=== PATIENT | female | born 1980 | race Caucasian/White ===

== ENCOUNTER 2022-04-05 18:23 | Observation (INO) | payer BC ==
[~2022-04-05] VITALS: Ht 157.4 cm; Wt 57.1 kg
[~2022-04-05 18:23] MED LIST: ACHYD1T PO; DCS100C PO; Docusate Sodium PO; ENXP40I.4 SC; HYDR-3720 PO; IBP800T PO; Ibuprofen PO; ONDA-43 PO; PREN1TAB19 PO; progesterone
[2022-04-05] MEDS ORDERED: NS IV 1000 ML 1,000 ML IV STA (19:02)
[2022-04-05 19:20] LABS: BASOPHILS % (AUTO) 0 % (0-10); EOSINOPHILS # (AUTO) 0.2 10^3/uL (0.0-0.3); EOSINOPHILS % (AUTO) 1 % (0-10); HEMATOCRIT 35 % (35-52); HEMOGLOBIN 11.4 g/dL (11.5-16.0); LYMPHOCYTES # (AUTO) 4.6 X 10^3 (1.0-4.0); LYMPHOCYTES % (AUTO) 32 % (12-44); MEAN CORPUSCULAR HEMOGLOBIN 29 pg (25-34); MEAN CORPUSCULAR HGB CONC 33 g/dL (32-36); MEAN CORPUSCULAR VOLUME 89 fL (80-99); MEAN PLATELET VOLUME 9.5 fL (9.0-12.2); MONOCYTES # (AUTO) 0.9 X 10^3 (0.0-1.0); MONOCYTES % (AUTO) 7 % (0-12); NEUTROPHILS # (AUTO) 8.6 X 10^3 (1.8-7.8); NEUTROPHILS % (AUTO) 60 % (42-75); PLATELET COUNT 355 10^3/uL (130-400); WHITE BLOOD COUNT 14.4 10^3/uL (4.3-11.0)
[2022-04-05 19:23] LABS: ALBUMIN 4.1 GM/DL (3.2-4.5); BILIRUBIN,TOTAL 0.2 MG/DL (0.1-1.0); CALCIUM 8.9 MG/DL (8.5-10.1); CREATININE SERUM 0.77 MG/DL (0.60-1.30); MAGNESIUM 1.7 MG/DL (1.6-2.4); POTASSIUM 3.7 MMOL/L (3.6-5.0); TOTAL PROTEIN 6.8 GM/DL (6.4-8.2)
--- NOTE | 2022-04-05 19:25 | ED Integumentary General ---
General Chief Complaint: Allergic Reaction Stated Complaint: BILAT HAND AND SHOULDER PAIN - JAW PAIN Nursing Triage Note: pt ambulatory to room. 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 pt primary doctor prescribed her doxycycline, benadryl, prednisone, singulair, and gave her an epi-pen. pt states she woke up yesterday and had extreme pain from her hands, up her arms, into her shoulders and jaw. pt primary doctory told her to discontinue the doxy and prednisone at that time. pt states the pain is too extreme to handle today and can barely drive to lift her arms up or eat with the pain in her jaw Source: patient, family Exam Limitations: no limitations History of Present Illness Date Seen by Provider: Apr 05, 2022 Time Seen by Provider: 19:20 Initial Comments This is a healthy 42-year-old female who presents to the emergency room for evaluation of a rash and bilateral upper extremity and upper back pain. She states that on Wednesday she noticed some itching and a slight erythematous rash on her extremities which then progressed throughout the evening and by Wednesday dinkey operator slag she had significant swelling to her lips. She states that the rash coalesced into bright red painful rash on her legs and arms primarily. She went to urgent care and they gave her a shot of steroids and started her on doxycycline and prednisone. The rash seemed to worsen and so they gave her another shot of steroids and increase the dose of prednisone at that time. As of today the rash had mostly improved patient states that she started having severe joint and muscle pain in her upper extremities and upper back. Her pain is currently a 9 out of 10 that is worse with any kind of movement. Timing/Duration: week Possible Cause: no cause identified Allergies and Home Medications Allergies Coded Allergies: erythromycin base (Verified Allergy, Unknown, 03/03/07) Patient Home Medication List Home Medication List Reviewed: No Cetirizine HCl (Zyrtec) 10 Mg Tablet, 10 MG PO DAILY, (Reported) Entered as Reported by: DANIEL STAHL on 04/06/22 9367 Last Action: Reviewed Diphenhydramine HCl (Benadryl) 25 Mg Capsule, 25 MG PO Q4H PRN for RASH, (Reported) Entered as Reported by: DANIEL STAHL on 04/06/22 7947 Last Action: Reviewed Ketorolac Tromethamine (Ketorolac Tromethamine) 10 Mg Tablet, 10 MG PO Q6H Prescribed by: CELESTE RODRIGUEZ on 04/06/221816 Oxycodone HCl/Acetaminophen (Percocet 7.5-325 mg Tablet) 1 Each Tablet, 1 TAB PO Q6H PRN for PAIN-MODERATE Prescribed by: CELESTE RODRIGUEZ on 04/06/221817 Discontinued Medications Ascorbate Calcium (Vitamin C) 500 Mg Tablet, 500 MG PO DAILY, (Reported) Entered as Reported by: DANIEL STAHL on 04/06/221406 Last Action: Reviewed Cholecalciferol (Vitamin D3) (Vitamin D3) 125 Mcg (5000 Unit) Tablet, 125 MCG PO DAILY, (Reported) Entered as Reported by: DANIEL STAHL on 04/06/221406 Last Action: Reviewed Doxycycline Hyclate (Doxycycline Hyclate) 100 Mg Tablet, 100 MG PO BID, (Reported) Entered as Reported by: DANIEL STAHL on 04/06/221404 Last Action: Reviewed Lactobac Cmb #3/Fos/Pantethine (Probiotic & Acidophilus Cap) 300MM-250 Capsule, 1 EACH PO DAILY, (Reported) Entered as Reported by: DANIEL STAHL on 04/06/221407 Last Action: Reviewed Melatonin (Melatonin) 5 Mg Tablet, 5 MG PO HS PRN for SLEEP, (Reported) Entered as Reported by: DANIEL STAHL on 04/06/221405 Last Action: Reviewed Montelukast Sodium (Montelukast Sodium) 10 Mg Tablet, 10 MG PO DAILY, (Reported) Entered as Reported by: DANIEL STAHL on 04/06/221404 Last Action: Reviewed Multivitamin (Multi-Vitamin Daily) 1 Each Tablet, 1 EACH PO DAILY, (Reported) Entered as Reported by: DANIEL STAHL on 04/06/221407 Last Action: Reviewed [place]-3 Fatty Acids/Fish Oil ([place] 3 1,000 mg Softgel) 300 Mg-1,000 Mg Capsule, 1 EACH PO DAILY, (Reported) Entered as Reported by: DANIEL STAHL on 04/06/221406 Last Action: Reviewed Prednisone (Prednisone) 20 Mg Tab, 60 MG PO DAILY, (Reported) Entered as Reported by: DANIEL STAHL on 04/06/221404 Last Action: Reviewed Triamcinolone Acet (Triamcinolone Acetonide 0.1% Cream) 0.1 % Cr, 1 APPLIC TOP DAILY, (Reported) Entered as Reported by: DANIEL STAHL on 04/06/22 8045 Last Action: Reviewed Review of Systems Review of Systems Constitutional: no symptoms reported EENTM: no symptoms reported Respiratory: no symptoms reported Cardiovascular: edema (Hands and feet) Musculoskeletal: back pain, muscle pain Skin: rash Hematologic/Lymphatic: No Symptoms Reported Past Iodvzpw-Twcsnt-Eonjbn Hx Patient Social History Tobacco Use?: No Substance use?: No Alcohol Use?: No Immunizations Up To Date Tetanus Booster (TDap): Less than 5yrs Past Medical History Reproductive Disorders: No Female Reproductive Disorders: Denies Sexually Transmitted Disease: No HIV/AIDS: No Loss of Vision: Denies Hearing Impairment: Denies Adverse Reaction/Blood Tranf: No Family Medical History FH: multiple sclerosis Osteoarthrosis Pulmonary embolism Thyroid disease 19 MOTHER (THYROID CANCER) No Family History of: AIDS Abdominal aortic aneurysm [place]'s disease Alcoholism Alzheimer's disease Aphasia Arthritis Asthma Cancer of mouth Cardiovascular disease Cataracts Colon cancer Completed stroke Congenital disease Congenital heart disease Coronary thrombosis Cystic fibrosis Deafness or hearing loss Dementia Diabetes mellitus Drug abuse Dysphasia Fibrocystic disease of breast Gastroenteritis Glaucoma Headache disorder Hypercholesterolemia Hypertension Infertility Kidney disease Myocardial infarction Neoplasm Not obtainable due to adoption Osteoporosis Parkinson's disease Prostate cancer Psychosocial problem Respiratory disorder Seizure disorder Severe allergy Tuberculosis Visual disorder Physical Exam Vital Signs Vital Signs - First Documented 04/05/22 18:34 Temp 36.5 Pulse 95 Resp 16 B/P (MAP) 114/71 (85) Pulse Ox 98 Capillary Refill : General Appearance: WD/WN, no apparent distress HEENT: PERRL/EOMI, normal ENT inspection Neck: other (Tenderness to palpation to the cervical paraspinal muscles) Cardiovascular: regular rate, rhythm Respiratory: chest non-tender, normal breath sounds Gastrointestinal: non tender Back: normal inspection, other (Muscle tenderness to the upper trapezius muscles bilaterally) Extremities: other (Limited range of motion to the shoulders and elbow secondary to pain) 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 Skin: normal color, rash (Fine erythematous nonblanching rash noted to the lower extremities) Lymphatic: no adenopathy Progress/Results/Core Measures Results/Orders Lab Results Laboratory Tests Test 04/05/22 18:42 Range/Units White Blood Count 14.4 H 4.3-11.0 10^3/uL Red Blood Count 3.92 3.80-5.11 10^6/uL Hemoglobin 11.4 L 11.5-16.0 g/dL Hematocrit 35 35-52 % Mean Corpuscular Volume 89 80-99 fL Mean Corpuscular Hemoglobin 29 25-34 pg Mean Corpuscular Hemoglobin Concent 33 32-36 g/dL Red Cell Distribution Width 14.1 10.0-14.5 % Platelet Count 355 130-400 10^3/uL Mean Platelet Volume 9.5 9.0-12.2 fL Immature Granulocyte % (Auto) 0 % Neutrophils (%) (Auto) 60 42-75 % Lymphocytes (%) (Auto) 32 12-44 % Monocytes (%) (Auto) 7 0-12 % Eosinophils (%) (Auto) 1 0-10 % Basophils (%) (Auto) 0 0-10 % Neutrophils # (Auto) 8.6 H 1.8-7.8 X 10^3 Lymphocytes # (Auto) 4.6 H 1.0-4.0 X 10^3 Monocytes # (Auto) 0.9 0.0-1.0 X 10^3 Eosinophils # (Auto) 0.2 0.0-0.3 10^3/uL Basophils # (Auto) 0.0 0.0-0.1 10^3/uL Immature Granulocyte # (Auto) 0.1 0.0-0.1 10^3/uL Neutrophils % (Manual) 57 % Lymphocytes % (Manual) 37 % Monocytes % (Manual) 6 % Polychromasia SLIGHT Erythrocyte Sedimentation Rate 17 0-20 MM/HR Sodium Level 139 135-145 MMOL/L Potassium Level 3.7 3.6-5.0 MMOL/L Chloride Level 104 98-107 MMOL/L Carbon Dioxide Level 20 L 21-32 MMOL/L Anion Gap 15 H 5-14 MMOL/L Blood Urea Nitrogen 13 7-18 MG/DL Creatinine 0.77 0.60-1.30 MG/DL Estimat Glomerular Filtration Rate 99 BUN/Creatinine Ratio 17 Glucose Level 109 H 70-105 MG/DL Calcium Level 8.9 8.5-10.1 MG/DL Corrected Calcium 8.8 8.5-10.1 MG/DL Magnesium Level 1.7 1.6-2.4 MG/DL Total Bilirubin 0.2 0.1-1.0 MG/DL Aspartate Amino Transf (AST/SGOT) 22 5-34 U/L Alanine Aminotransferase (ALT/SGPT) 24 0-55 U/L Alkaline Phosphatase 54 40-136 U/L Troponin I < 0.028 <0.028 NG/ML C-Reactive Protein High Sensitivity 1.81 H 0.00-0.50 MG/DL Total Protein 6.8 6.4-8.2 GM/DL Albumin 4.1 3.2-4.5 GM/DL Serum Test, Qualitative NEGATIVE NEGATIVE My Orders Orders - JUNE MCKEON Ua Culture If Indicated (04/05/22 18:32) Hcg,Qualitative Serum (04/05/22 18:32) Cbc With Automated Diff (04/05/22 19:02) Comprehensive Metabolic Panel (04/05/22 19:02) Magnesium (04/05/22 19:02) Hs C Reactive Protein (04/05/22 19:02) Erythrocyte Sedimentation Rate (04/05/22 19:02) Ns Iv 1000 Ml (Sodium Chloride 0.9%) (04/05/22 19:02) Manual Differential (04/05/22 18:42) Ondansetron Injection (Zofran Injectio (04/05/22 20:00) Morphine Injection (Morphine Injection (04/05/22 20:00) Medications Given in ED Vital Signs/I&O 04/05/22 18:34 Temp 36.5 Pulse 95 Resp 16 B/P (MAP) 114/71 (85) Pulse Ox 98 Blood Pressure Mean: 85 Comment Sinus rhythm, 75 bpm, QRS duration 79 MS, QTc 395 MS Departure Communication (Admissions) Time/Spoke to Admitting Phy: 20:[address] Rodriguez at this time. Communication (PCP) Concern for vasculitis, autoimmune, allergic reaction to doxycycline. Patient with extreme pain in her upper extremities and neck without much improvement here in the ER.. Improvement the rash in her lower extremities. Patient will be admitted for further evaluation Impression Primary Impression: Arthralgia Additional Impression: Rash and nonspecific skin eruption Disposition: ADMITTED INPATIENT Condition: Stable Admissions Decision to Admit Reason: Admit from ER (General) Decision to Admit/Date: Apr 05, 2022 Time/Decision to Admit Time: 19:59 Departure-Patient Inst. Referrals: CELESTE RODRIGUEZ MD (PCP/Family) Primary Care Physician Scripts Oxycodone HCl/Acetaminophen (Percocet 7.5-325 mg Tablet) 1 Each Tablet 1 TAB PO Q6H PRN for PAIN-MODERATE MDD 4 TABS for 7 Days, #28 TAB Prov: CELESET RODRIGUEZ MD 04/06/22 Ketorolac Tromethamine (Ketorolac Tromethamine) 10 Mg Tablet 10 MG PO Q6H for 5 Days, #20 TAB Prov: CELESTE RODRIGUEZ MD 04/06/22 JUNE MCKEON Apr 05, 2022 19:25
[2022-04-05 19:47] LABS: ERYTHROCYTE SEDIMENTATION RATE 17 MM/HR (0-20); LYMPHOCYTES % (MANUAL) 37 %; MONOCYTES % (MANUAL) 6 %; NEUTROPHILS % (MANUAL) 57 %; POLYCHROMASIA SLIGHT
[2022-04-05] MEDS ORDERED: ONDANSETRON 4 MG/2 ML (SDV) Z0FRAN IVP ONE (20:00)
[2022-04-05] MEDS ORDERED: morphine INJ 10 MG/ML 1ML (SYR OR VIAL) IVP ONE (20:00)
[2022-04-05] MEDS ORDERED: diphenhydrAMINE 50 MG/ML INJ (BENADRYL) IVP ONE (20:15)
[2022-04-05 21:15] VITALS: BP 123/67
[2022-04-05] MEDS ORDERED: KETOROLAC 30 MG/ML VIAL IVP ONE (21:15)
[2022-04-05] MEDS ORDERED: NS IV 1000 ML 1,000 ML ONE (21:18)
[2022-04-05] MEDS ORDERED: CATHETER FLUSH 10 ML SYR IVP PRN (21:30)
[2022-04-05] MEDS ORDERED: fentaNYL INJ 100 MCG/2 ML AMP IV PRN (21:30)
[2022-04-05 22:10] LABS: CLARITY,URINE CLEAR; COLOR,URINE YELLOW
[2022-04-05 22:11] LABS: BACTERIA,URINE NEGATIVE /HPF; BILIRUBIN,URINE NEGATIVE (NEGATIVE); GLUCOSE, URINE (UA) NEGATIVE (NEGATIVE); KETONES,URINE NEGATIVE (NEGATIVE); LEUKOCYTE ESTERASE ,URINE NEGATIVE (NEGATIVE); NITRITE,URINE NEGATIVE (NEGATIVE); PH,URINE 6.5 (5-9); PROTEIN,URINE NEGATIVE (NEGATIVE); SQUAMOUS EPITHELIAL CELL,UR RARE /HPF
[2022-04-05] MEDS: CATHETER FLUSH 10 ML SYR IVP SCH (23:20)
[2022-04-05] MEDS: NS IV 1000 ML 1,000 ML IV SCH (23:20)
[2022-04-06 00:15] VITALS: BP 110/61
[2022-04-06] MEDS: KETOROLAC 30 MG/ML VIAL IVP PRN ×3 (03:25→15:38)
[2022-04-06] MEDS: ONDANSETRON 4 MG/2 ML (SDV) Z0FRAN IV PRN ×2 (03:27→08:58)
[2022-04-06 04:06] VITALS: BP 109/60
[2022-04-06] MEDS: CATHETER FLUSH 10 ML SYR IVP SCH ×2 (05:01→14:02)
[2022-04-06] MEDS: NS IV 1000 ML 1,000 ML IV SCH ×2 (05:28→15:39)
[2022-04-06 05:41] LABS: BASOPHILS % (AUTO) 0 % (0-10); EOSINOPHILS # (AUTO) 0.2 10^3/uL (0.0-0.3); EOSINOPHILS % (AUTO) 2 % (0-10); HEMATOCRIT 32 % (35-52); HEMOGLOBIN 10.1 g/dL (11.5-16.0); LYMPHOCYTES # (AUTO) 3.7 10^3/uL (1.0-4.0); LYMPHOCYTES % (AUTO) 34 % (12-44); MEAN CORPUSCULAR HEMOGLOBIN 28 pg (25-34); MEAN CORPUSCULAR HGB CONC 31 g/dL (32-36); MEAN CORPUSCULAR VOLUME 90 fL (80-99); MEAN PLATELET VOLUME 9.6 fL (9.0-12.2); MONOCYTES # (AUTO) 0.8 10^3/uL (0.0-1.0); MONOCYTES % (AUTO) 7 % (0-12); NEUTROPHILS # (AUTO) 6.1 10^3/uL (1.8-7.8); NEUTROPHILS % (AUTO) 57 % (42-75); PLATELET COUNT 290 10^3/uL (130-400); WHITE BLOOD COUNT 10.8 10^3/uL (4.3-11.0)
[2022-04-06 05:53] LABS: ALBUMIN 3.2 GM/DL (3.2-4.5); POTASSIUM 4.2 MMOL/L (3.6-5.0)
[2022-04-06 05:55] LABS: CALCIUM 7.9 MG/DL (8.5-10.1)
[2022-04-06 05:56] LABS: TOTAL PROTEIN 5.3 GM/DL (6.4-8.2)
[2022-04-06 05:58] LABS: BILIRUBIN,TOTAL 0.3 MG/DL (0.1-1.0)
[2022-04-06 05:59] LABS: CREATININE SERUM 0.6 MG/DL (0.60-1.30)
[2022-04-06 07:47] VITALS: BP 116/68
[2022-04-06 11:56] VITALS: BP 111/67
[2022-04-06] MEDS ORDERED: DOXY100T2 PO (14:05)
[2022-04-06] MEDS ORDERED: MONT-40 PO (14:05)
[2022-04-06] MEDS ORDERED: TR1C15 TOP (14:05)
[2022-04-06] MEDS ORDERED: DIPH25CA79 PO (14:05)
[2022-04-06] MEDS ORDERED: PRD20T PO (14:05)
[2022-04-06] MEDS ORDERED: CETI10TA49 PO (14:06)
[2022-04-06] MEDS ORDERED: MELA5TAB14 PO (14:06)
[2022-04-06] MEDS ORDERED: OMEG1CAP58 PO (14:07)
[2022-04-06] MEDS ORDERED: ASCO-262 PO (14:07)
[2022-04-06] MEDS ORDERED: CALC-250 PO (14:07)
[2022-04-06] MEDS ORDERED: MULT-974 PO (14:08)
[2022-04-06] MEDS ORDERED: LACT1CAP57 PO (14:08)
[2022-04-06 16:00] VITALS: BP 117/70
--- NOTE | 2022-04-06 18:13 | Short Stay Summary ---
History of Present Illness History of Present Illness Date of Admission Apr 05, 2022 at 19:59 Date of Discharge Attending Physician Vandana Rodriguez MD Admitting Physician Admitting Physician: Vandana Rodriguez MD Attending Physician: Vandana Rodriguez MD Consult Allergies and Home Medications Allergies Coded Allergies: erythromycin base (Verified Allergy, Unknown, 03/03/07) Patient Home Medication List Ascorbate Calcium (Vitamin C) 500 Mg Tablet, 500 MG PO DAILY, (Reported) Entered as Reported by: DANIEL STAHL on 04/06/221406 Last Action: Reviewed Cetirizine HCl (Zyrtec) 10 Mg Tablet, 10 MG PO DAILY, (Reported) Entered as Reported by: DANIEL STAHL on 04/06/221405 Last Action: Reviewed Cholecalciferol (Vitamin D3) (Vitamin D3) 125 Mcg (5000 Unit) Tablet, 125 MCG PO DAILY, (Reported) Entered as Reported by: DANIEL STAHL on 04/06/221406 Last Action: Reviewed Diphenhydramine HCl (Benadryl) 25 Mg Capsule, 25 MG PO Q4H PRN for RASH, (Reported) Entered as Reported by: DANIEL STAHL on 04/06/221404 Last Action: Reviewed Doxycycline Hyclate (Doxycycline Hyclate) 100 Mg Tablet, 100 MG PO BID, (Reported) Entered as Reported by: DANIEL STAHL on 04/06/221404 Last Action: Reviewed Lactobac Cmb #3/Fos/Pantethine (Probiotic & Acidophilus Cap) 300MM-250 Capsule, 1 EACH PO DAILY, (Reported) Entered as Reported by: DANIEL STAHL on 04/06/221407 Last Action: Reviewed Melatonin (Melatonin) 5 Mg Tablet, 5 MG PO HS PRN for SLEEP, (Reported) Entered as Reported by: DANIEL STAHL on 04/06/221405 Last Action: Reviewed Montelukast Sodium (Montelukast Sodium) 10 Mg Tablet, 10 MG PO DAILY, (Reported) Entered as Reported by: DANIEL STAHL on 04/06/221404 Last Action: Reviewed Multivitamin (Multi-Vitamin Daily) 1 Each Tablet, 1 EACH PO DAILY, (Reported) Entered as Reported by: DANIEL STAHL on 04/06/221407 Last Action: Reviewed [place]-3 Fatty Acids/Fish Oil ([place] 3 1,000 mg Softgel) 300 Mg-1,000 Mg Capsule, 1 EACH PO DAILY, (Reported) Entered as Reported by: DANIEL STAHL on 04/06/221406 Last Action: Reviewed Prednisone (Prednisone) 20 Mg Tab, 60 MG PO DAILY, (Reported) Entered as Reported by: DANIEL STAHL on 04/06/221404 Last Action: Reviewed Triamcinolone Acet (Triamcinolone Acetonide 0.1% Cream) 0.1 % Cr, 1 APPLIC TOP DAILY, (Reported) Entered as Reported by: DANIEL STAHL on 04/06/221404 Last Action: Reviewed Past Rwbaefp-Nfulht-Hgdpbh Hx Patient Social History Smoking Status: Never a Smoker Have you traveled recently?: No Alcohol Use?: Unable to obtain Pt feels they are or have been: No Immunizations Up To Date Tetanus Booster (TDap): Less than 5yrs Date of Influenza Vaccine: Aug 08, 2014 Reproductive System Hx Reproductive Disorders: No Sexually Transmitted Disease: No HIV/AIDS: No Female Reproductive Disorders: Denies HEENT Loss of Vision: Denies Hearing Impairment: Denies Blood Transfusions Adverse Reaction to a Blood Tr: No Family Medical History Family Hx: FH: multiple sclerosis Osteoarthrosis Pulmonary embolism Thyroid disease 19 MOTHER (THYROID CANCER) No Family History of: AIDS Abdominal aortic aneurysm [place]'s disease Alcoholism Alzheimer's disease Aphasia Arthritis Asthma Cancer of mouth Cardiovascular disease Cataracts Colon cancer Completed stroke Congenital disease Congenital heart disease Coronary thrombosis Cystic fibrosis Deafness or hearing loss Dementia Diabetes mellitus Drug abuse Dysphasia Fibrocystic disease of breast Gastroenteritis Glaucoma Headache disorder Hypercholesterolemia Hypertension Infertility Kidney disease Myocardial infarction Neoplasm Not obtainable due to adoption Osteoporosis Parkinson's disease Prostate cancer Psychosocial problem Respiratory disorder Seizure disorder Severe allergy Tuberculosis Visual disorder Physical Exam Vital Signs Vital Signs - First Documented 04/05/22 04/05/22 18:34 21:00 Temp 36.5 Pulse 95 Resp 16 B/P (MAP) 114/71 (85) Pulse Ox 98 O2 Delivery Room Air Capillary Refill : Height, Weight, BMI Height: 5'2.00" Weight: 142lbs. oz. 64.218969ay; 23.04 BMI Method: Short Stay Diagnosis Conclusion Labs Laboratory Tests 04/05/22 18:42: White Blood Count 14.4H, Red Blood Count 3.92, Hemoglobin 11.4L, Hematocrit 35, Mean Corpuscular Volume 89, Mean Corpuscular Hemoglobin 29, Mean Corpuscular Hemoglobin Concent 33, Red Cell Distribution Width 14.1, Platelet Count 355, Mean Platelet Volume 9.5, Immature Granulocyte % (Auto) 0, Neutrophils (%) (Auto) 60, Lymphocytes (%) (Auto) 32, Monocytes (%) (Auto) 7, Eosinophils (%) (Auto) 1, Basophils (%) (Auto) 0, Neutrophils # (Auto) 8.6H, Lymphocytes # (Auto) 4.6H, Monocytes # (Auto) 0.9, Eosinophils # (Auto) 0.2, Basophils # (Auto) 0.0, Immature Granulocyte # (Auto) 0.1, Neutrophils % (Manual) 57, Lymphocytes % (Manual) 37, Monocytes % (Manual) 6, Polychromasia SLIGHT, Erythrocyte Sedimentation Rate 17, Sodium Level 139, Potassium Level 3.7, Chloride Level 104, Carbon Dioxide Level 20L, Anion Gap 15H, Blood Urea Nitrogen 13, Creatinine 0.77, Estimat Glomerular Filtration Rate 99, BUN/Creatinine Ratio 17, Glucose Level 109H, Calcium Level 8.9, Corrected Calcium 8.8, Magnesium Level 1.7, Total Bilirubin 0.2, Aspartate Amino Transf (AST/SGOT) 22, Alanine Aminotransferase (ALT/SGPT) 24, Alkaline Phosphatase 54, Troponin I < 0.028, C-Reactive Protein High Sensitivity 1.81H, Total Protein 6.8, Albumin 4.1, Serum Test, Qualitative NEGATIVE 04/05/22 20:55: Urine Color YELLOW, Urine Clarity CLEAR, Urine pH 6.5, Urine Specific [place] <=1.005, Urine Protein NEGATIVE, Urine Glucose (UA) NEGATIVE, Urine Ketones NEGATIVE, Urine Nitrite NEGATIVE, Urine Bilirubin NEGATIVE, Urine Urobilinogen 0.2, Urine Leukocyte Esterase NEGATIVE, Urine RBC (Auto) NEGATIVE, Urine RBC NONE, Urine WBC NONE, Urine Squamous Epithelial Cells RARE, Urine Crystals NONE, Urine Bacteria NEGATIVE, Urine Casts NONE, Urine Mucus NEGATIVE, Urine Culture Indicated NO 04/05/22 21:36: Lactic Acid Level 1.03, Total Creatine Kinase 20L 04/06/22 05:32: White Blood Count 10.8, Red Blood Count 3.60L, Hemoglobin 10.1L, Hematocrit 32L, Mean Corpuscular Volume 90, Mean Corpuscular Hemoglobin 28, Mean Corpuscular Hemoglobin Concent 31L, Red Cell Distribution Width 14.2, Platelet Count 290, Mean Platelet Volume 9.6, Immature Granulocyte % (Auto) 0, Neutrophils (%) (Auto) 57, Lymphocytes (%) (Auto) 34, Monocytes (%) (Auto) 7, Eosinophils (%) (Auto) 2, Basophils (%) (Auto) 0, Neutrophils # (Auto) 6.1, Lymphocytes # (Auto) 3.7, Monocytes # (Auto) 0.8, Eosinophils # (Auto) 0.2, Basophils # (Auto) 0.0, Immature Granulocyte # (Auto) 0.0, Sodium Level 135, Potassium Level 4.2, Chloride Level 106, Carbon Dioxide Level 22, Anion Gap 7, Blood Urea Nitrogen 11, Creatinine 0.60, Estimat Glomerular Filtration Rate 116, BUN/Creatinine Ratio 18, Glucose Level 91, Calcium Level 7.9L, Corrected Calcium 8.5, Total Bilirubin 0.3, Aspartate Amino Transf (AST/SGOT) 17, Alanine Aminotransferase (ALT/SGPT) 20, Alkaline Phosphatase 39L, C-Reactive Protein High Sensitivity 2.97H, Total Protein 5.3L, Albumin 3.2 Microbiology 04/05/22 Blood Culture - Preliminary, Resulted No growth VANDANA RODRIGUEZ MD Apr 06, 2022 18:13
[2022-04-06] MEDS ORDERED: OXYC1TAB16 PO (18:17)
[2022-04-06] MEDS ORDERED: KETO10TA PO (18:17)
--- NOTE | 2022-04-06 18:26 | Discharge Inst-Simple/Standard ---
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) Return to The Hospital For: any worsening/uncontrolled pain, dizziness, shortness of breath or other acute or unusual symptoms or any lifethreatening illness or injury Medication List: Active Scripts Active Percocet 7.5-325 mg Tablet (Oxycodone HCl/Acetaminophen) 1 Each Tablet 1 Tab PO Q6H PRN MDD 4 TABS 7 Days Ketorolac Tromethamine 10 Mg Tablet 10 Mg PO Q6H 5 Days tylenol rapid release - take every 6 hours alternating with ketorolac voltaren gel - apply to wrists, hands and knees Lab results: Laboratory Tests Test 04/05/22 18:42 04/05/22 20:55 04/05/22 21:36 04/06/22 05:32 Range/Units White Blood Count 14.4 H 10.8 4.3-11.0 10^3/uL Red Blood Count 3.92 3.60 L 3.80-5.11 10^6/uL Hemoglobin 11.4 L 10.1 L 11.5-16.0 g/dL Hematocrit 35 32 L 35-52 % Mean Corpuscular Volume 89 90 80-99 fL Mean Corpuscular Hemoglobin 29 28 25-34 pg Mean Corpuscular Hemoglobin Concent 33 31 L 32-36 g/dL Red Cell Distribution Width 14.1 14.2 10.0-14.5 % Platelet Count 355 290 130-400 10^3/uL Mean Platelet Volume 9.5 9.6 9.0-12.2 fL Immature Granulocyte % (Auto) 0 0 % Neutrophils (%) (Auto) 60 57 42-75 % Lymphocytes (%) (Auto) 32 34 12-44 % Monocytes (%) (Auto) 7 7 0-12 % Eosinophils (%) (Auto) 1 2 0-10 % Basophils (%) (Auto) 0 0 0-10 % Neutrophils # (Auto) 8.6 H 6.1 1.8-7.8 10^3/uL Lymphocytes # (Auto) 4.6 H 3.7 1.0-4.0 10^3/uL Monocytes # (Auto) 0.9 0.8 0.0-1.0 10^3/uL Eosinophils # (Auto) 0.2 0.2 0.0-0.3 10^3/uL Basophils # (Auto) 0.0 0.0 0.0-0.1 10^3/uL Immature Granulocyte # (Auto) 0.1 0.0 0.0-0.1 10^3/uL Neutrophils % (Manual) 57 % Lymphocytes % (Manual) 37 % Monocytes % (Manual) 6 % Polychromasia SLIGHT Erythrocyte Sedimentation Rate 17 0-20 MM/HR Sodium Level 139 135 135-145 MMOL/L Potassium Level 3.7 4.2 3.6-5.0 MMOL/L Chloride Level 104 106 98-107 MMOL/L Carbon Dioxide Level 20 L 22 21-32 MMOL/L Anion Gap 15 H 7 5-14 MMOL/L Blood Urea Nitrogen 13 11 7-18 MG/DL Creatinine 0.77 0.60 0.60-1.30 MG/DL Estimat Glomerular Filtration Rate 99 116 BUN/Creatinine Ratio 17 18 Glucose Level 109 H 91 70-105 MG/DL Calcium Level 8.9 7.9 L 8.5-10.1 MG/DL Corrected Calcium 8.8 8.5 8.5-10.1 MG/DL Magnesium Level 1.7 1.6-2.4 MG/DL Total Bilirubin 0.2 0.3 0.1-1.0 MG/DL Aspartate Amino Transf (AST/SGOT) 22 17 5-34 U/L Alanine Aminotransferase (ALT/SGPT) 24 20 0-55 U/L Alkaline Phosphatase 54 39 L 40-136 U/L Troponin I < 0.028 <0.028 NG/ML C-Reactive Protein High Sensitivity 1.81 H 2.97 H 0.00-0.50 MG/DL Total Protein 6.8 5.3 L 6.4-8.2 GM/DL Albumin 4.1 3.2 3.2-4.5 GM/DL Serum Test, Qualitative NEGATIVE NEGATIVE Urine Color YELLOW Urine Clarity CLEAR Urine pH 6.5 5-9 Urine Specific [place] <=1.005 1.016-1.022 Urine Protein NEGATIVE NEGATIVE Urine Glucose (UA) NEGATIVE NEGATIVE Urine Ketones NEGATIVE NEGATIVE Urine Nitrite NEGATIVE NEGATIVE Urine Bilirubin NEGATIVE NEGATIVE Urine Urobilinogen 0.2 < = 1.0 MG/DL Urine Leukocyte Esterase NEGATIVE NEGATIVE Urine RBC (Auto) NEGATIVE NEGATIVE Urine RBC NONE /HPF Urine WBC NONE /HPF Urine Squamous Epithelial Cells RARE /HPF Urine Crystals NONE /LPF Urine Bacteria NEGATIVE /HPF Urine Casts NONE /LPF Urine Mucus NEGATIVE /LPF Urine Culture Indicated NO Lactic Acid Level 1.03 0.50-2.00 MMOL/L Total Creatine Kinase 20 L 29-168 U/L My orders: Orders - CELESTE MEDINA MD Admission Order(Inpt,Obs,Sdc) (04/05/22 21:09) Iv/Invasive Line Insertion .IV start (04/05/22 21:09) General/Regular (04/06/22 Breakfast) Cbc With Automated Diff (04/06/22 06:00) Comprehensive Metabolic Panel (04/06/22 06:00) Sequential Compression Device (04/05/22 21:09) Vital Signs: Every 4 Hours (Or (04/05/22 21:09) Sequential Compression Device (04/05/22 21:09) Ketorolac Injection (Toradol Injection) (04/05/22 21:15) Ketorolac Injection (Toradol Injection) (04/05/22 21:15) Creatine Kinase (04/05/22 21:09) Ra Factor (Rheumatoid Factor) (04/05/22 21:09) Anti-Nuclear Ab (Anayeli) Analyzer (04/05/22 21:09) Alpha-Gal(Sndgth-Ofhtg-5,3-Gal (04/05/22 21:09) Code/Resuscitation (04/05/22 21:09) Sequential Compression Device ONCE (04/05/22 21:09) Initiate Admission Nursing Pro .admission (04/05/22 21:09) Blood Culture (04/05/22 21:09) Lactic Acid Analyzer (04/05/22 21:09) Vitamin D 25-Hydroxy (04/05/22 21:09) Hs C Reactive Protein (04/05/22 06:00) West Nile Virus Igg & M (04/05/22 21:09) Ns Iv 1000 Ml (Sodium Chloride 0.9%) (04/05/22 21:15) Ns Iv 1000 Ml (Sodium Chloride 0.9%) (04/05/22 21:18) Fentanyl Inj (Sublimaze Injection) (04/05/22 21:30) Ondansetron Injection (Zofran Injectio (04/05/22 21:30) Sodium Chloride Flush (Catheter Flush Sy (04/05/22 21:30) Sodium Chloride Flush (Catheter Flush Sy (04/05/22 22:00) Attending Discharge Inpt/Inobs (04/06/22 18:13) Ua Culture If Indicated (04/06/22 18:22) Ketorolac Injection (Toradol Injection) (04/06/22 18:30) CELESTE MEDINA MD Apr 06, 2022 18:24
[2022-04-06] MEDS ORDERED: KETOROLAC 30 MG/ML VIAL IVP NR (18:30)
[2022-04-06 18:53] VITALS: BP 117/70
[2022-04-06 19:08] LABS: BILIRUBIN,URINE NEGATIVE (NEGATIVE); CLARITY,URINE CLEAR; COLOR,URINE YELLOW; GLUCOSE, URINE (UA) NEGATIVE (NEGATIVE); KETONES,URINE NEGATIVE (NEGATIVE); LEUKOCYTE ESTERASE ,URINE NEGATIVE (NEGATIVE); NITRITE,URINE NEGATIVE (NEGATIVE); PROTEIN,URINE NEGATIVE (NEGATIVE)
[2022-04-06 19:18] LABS: BACTERIA,URINE TRACE /HPF; SQUAMOUS EPITHELIAL CELL,UR 0-2 /HPF
== END 2022-04-06 18:58 | disposition home or self-care (01) ==
LOC: EDUNIT# 18:23 → ER 18:26 → 4TH 19:59
PROVIDERS: ADMIT Family Medicine; ATTEND Family Medicine
DX: M25.50 Pain in unspecified joint (principal); R21 Rash and other nonspecific skin eruption
CPT/HCPCS: 36415; 80053; 81000; 82306; 82550; 83605; 83735; 84484; 84703; 85007; 85025; 85027; 85652; 86003; 86038; 86039; 86141; 86431; 86788; 86789; 87040; 93005; 96361; 96375; 96376; G0378

== ENCOUNTER → 2022-04-28 | Outpatient (CLI) | payer BC ==
[~2022-04-28] MED LIST changes: +ASCO-262 PO; +CALC-250 PO; +CETI10TA49 PO; +DIPH25CA79 PO; +DOXY100T2 PO; +KETO10TA PO; +LACT1CAP57 PO; +MELA5TAB14 PO; +MONT-40 PO; +MULT-974 PO; +OMEG1CAP58 PO; +OXYC1TAB16 PO; +PRD20T PO; +TR1C15 TOP
--- NOTE | 2022-04-28 16:35 | Diagnostic Imaging Report ---
INDICATION: Routine screening. COMPARISON: No prior mammograms are available for comparison. This is a baseline study. TECHNIQUE: 2D and 3D bilateral screening mammography was performed with CAD. FINDINGS: Both breasts are heterogeneously dense, limiting the sensitivity of mammography. There is a cluster of microcalcifications in the upper outer retroareolar right breast which are indeterminate. There is also a cluster of microcalcifications in the central left breast at mid depth. Additional views of these calcifications bilaterally are recommended. No dominant mass is identified. The axillae are unremarkable. IMPRESSION: Bilateral breast calcifications. Additional views are recommended for further evaluation. ACR BI-RADS Category 0: Incomplete. (Needs additional imaging evaluation). Result letter will be mailed to the patient. Note: At least 10% of breast cancer is not imaged by mammography. Dictated by: Dictated on workstation # [id number]
--- NOTE | 2022-04-28 17:04 | Diagnostic Imaging Report ---
PROCEDURE: Pelvic complete, transabdominal and transvaginal sonogram. Limited pelvic doppler. TECHNIQUE: Multiple real-time grayscale images were obtained of the pelvis in various projections transabdominally and transvaginally. Limited pelvic duplex images were obtained. HISTORY: Abnormal uterine bleeding COMPARISON: None available. FINDINGS: Uterus: The uterus is anteverted and measures 6.3 x 3.1 x 4.9 cm. The myometrium is homogeneous without fibroids. Endometrium: The endometrium is normal in thickness and measures 0.6 cm. There is no fluid within the endometrial cavity. Adnexa: There is a 4.6 cm unilocular anechoic cyst within the left adnexa. The right ovary is unremarkable. The right ovary measures 4.1 x 1.7 x 2.0 cm and the left ovary measures 4.8 x 2.5 x 4.7 cm. Duplex images reveal normal vascular flow to both ovaries. Other: There is no free fluid within the pelvis. IMPRESSION: 1. Unremarkable pelvic ultrasound. 2. A 4.8 cm simple appearing left adnexal cyst is likely benign. Dictated by: Dictated on workstation # [id number]
== END ==
LOC: RAD 15:00
PROVIDERS: ATTEND Surgery
DX: Z12.31 Encounter for screening mammogram for malignant neoplasm of breast (principal); E27.8 Other specified disorders of adrenal gland; R92.1 Mammographic calcification found on diagnostic imaging of breast
CPT/HCPCS: 76830; 76856; 77063; 77067

== ENCOUNTER → 2022-05-04 | Outpatient (CLI) | payer BC ==
--- NOTE | 2022-05-05 09:08 | Diagnostic Imaging Report ---
INDICATION: Bilateral breast calcifications. Patient presents for additional views. COMPARISON: Correlation is made with the screening study from 04/28/2022. TECHNIQUE: 2D and 3D bilateral diagnostic mammography was performed. This included magnification views in the CC and ML projections as well as conventional 90 degree lateral views. FINDINGS: The calcifications in the upper outer retroareolar right breast as well as the upper central left breast are again noted. The majority of these calcifications appears to represent milk of calcium. There are several additional punctate calcifications present as well. No definite malignant-appearing microcalcifications are identified. No mass is detected. IMPRESSION: Bilateral breast calcifications likely represent largely milk of calcium type and appear benign. Even so, followup bilateral mammography in 6 months is recommended to show continued stability. ACR BI-RADS Category 3: Probably benign findings. Result letter will be mailed to the patient. Note: At least 10% of breast cancer is not imaged by mammography. Dictated by: Dictated on workstation # [id number]
== END ==
LOC: RAD 12:36
PROVIDERS: ATTEND Surgery
DX: R92.0 Mammographic microcalcification found on diagnostic imaging of breast (principal)
CPT/HCPCS: 77066; G0279; 77062

== ENCOUNTER → 2023-05-04 | Outpatient (CLI) | payer BC ==
--- NOTE | 2023-05-04 15:41 | Diagnostic Imaging Report ---
Indication: Routine screening. Comparison is made with prior mammogram from 04/28/2022. 2-D and 3-D bilateral screening mammography was performed with CAD. Both breasts are heterogeneously dense, limiting the sensitivity of mammography. A density with punctate calcifications in the central left breast appears to be fairly stable. Right breast calcifications are stable. No new mass or malignant-appearing microcalcifications are seen. Axillae are unremarkable. IMPRESSION: BI-RADS Category 2. No mammographic features suspicious for malignancy are identified. ACR BI-RADS Category 2: Benign findings. Result letter will be mailed to the patient. Note: At least 10% of breast cancer is not imaged by mammography. Dictated by: Dictated on workstation # [id number]
== END ==
LOC: RAD 13:49
PROVIDERS: ATTEND Nurse Practitioner
DX: Z12.31 Encounter for screening mammogram for malignant neoplasm of breast (principal)
CPT/HCPCS: 77063; 77067

== ENCOUNTER → 2023-06-25 | Outpatient (CLI) | payer BC ==
--- NOTE | 2023-06-25 14:40 | Diagnostic Imaging Report ---
PROCEDURE: US left lower extremity venous. TECHNIQUE: Multiple real-time grayscale images were obtained over the left lower extremity in various projections. Additional duplex Doppler and color Doppler images were also obtained. INDICATION: Pain in the right thigh. COMPARISON: Non available. FINDINGS: The left common femoral, femoral and popliteal veins are patent by color doppler imaging and without DVT. Visualized proximal aspects of the greater saphenous, deep femoral, posterior tibial and peroneal veins are also patent. All of the evaluated deep venous structures demonstrate normal compressibility and waveform augmentation where applicable. IMPRESSION: No left lower extremity deep venous thrombosis (DVT). Dictated by: Dictated on workstation # [id number]
== END ==
LOC: RAD 13:03
PROVIDERS: ATTEND Nurse Practitioner Family
DX: M79.89 Other specified soft tissue disorders (principal); D68.4 Acquired coagulation factor deficiency; T78.40XD Allergy, unspecified, subsequent encounter; T78.3XXD Angioneurotic edema, subsequent encounter; M79.605 Pain in left leg; R13.19 Other dysphagia